=== PATIENT | male | born 1945 | race Caucasian/White ===

== ENCOUNTER 2025-01-21 15:25 | Emergency (ER) | payer MEDICARE, SELFPAY ==
[2025-01-21] VITALS (7 sets, daily range): BP systolic 149–171; BP diastolic 78–90; PULSE 55–66; RESP 14–17; TEMP 36.5–36.6; O2SAT 95–100; BMI 21.2
--- NOTE | 2025-01-21 15:26 | EKG12_ITS ---
Test Reason : STROKE Blood Pressure : */* mmHG Vent. Rate : 61 BPM Atrial Rate : 61 BPM P-R Int : 162 ms QRS Dur : 88 ms QT Int : 400 ms P-R-T Axes : 86 15 36 degrees QTcB Int : 402 ms Normal sinus rhythm Cannot rule out Anterior infarct , age undetermined Abnormal ECG Confirmed by NORBERTO ROGERS, VIVI ([id number]), order editor OSMAN PLEITEZ ([id number]) on 01/25/2025 6:01:44 AM Referred By: YASH Confirmed By: VIVI THORNTON MD
--- NOTE | 2025-01-21 15:26 | CT_ITS ---
PROCEDURE: STROKE BRAIN/HEAD WITHOUT CONT 01/21/2025 REASON FOR EXAM: NEURO DEFICIT, ACUTE, STROKE SUSPECTED TECHNIQUE: Procedure Code: CTBR.ST Modality: CT Procedure: STROKE BRAIN/HEAD WITHOUT CONT Coronal and Sagittal reconstruction series were provided. One or more dose reduction techniques were used (e.g., Automated exposure control, adjustment of the mA and/or kV according to patient size, use of iterative reconstruction technique. RADIATION DOSE SUMMARY: CTDlvol: 45 mGy DLP: 813 mGycm COMPARISON: None FINDINGS: Brain: Within normal limits for age CSF Spaces: Normal Sinuses/Mastoids: Clear at visualized levels Bones: Unremarkable. CT/STROKE Brain/Head without Cont IMPRESSION: No acute intracranial hemorrhage. Findings discussed with Dr. Fernandez in person at 3:34 p.m. Reading Location: [place] [address]
--- NOTE | 2025-01-21 15:30 | CT_ITS ---
PROCEDURE: STROKE CTA HEAD AND NECK W/CON 01/21/2025 REASON FOR EXAM: NEURO DEFICIT, ACUTE, STROKE SUSPECTED aphasic. TECHNIQUE: Procedure Code: CTCTA.ST.HN Modality: CT Procedure: STROKE CTA HEAD AND NECK W/CON Multiplanar Sagittal and Coronal images were obtained. 3D post processing was performed CONTRAST: Isovue 370 VOLUME: 100 mL One or more dose reduction techniques were used (e.g., Automated exposure control, adjustment of the mA and/or kV according to patient size, use of iterative reconstruction technique). RADIATION DOSE SUMMARY: CTDlvol: 48.5 mGy DLP: 810.2 mGycm COMPARISON: Earlier today's head CT. FINDINGS: CT BRAIN: Cerebrum: Mild loss of cerebral volume. Negative for mass the frontal, parietal, temporal and occipital lobes otherwisenegative. White matter: Mild periventricular white matter changes. Cerebellum: Negative. Negative for mass. Negative for acute infarction. CSF pathways and ventricles: Negative. Negative for ventricular dilatation or obstruction. Basal ganglia and thalami: Negative. No acute infarctions. Brainstem: Midbrain, shelby and medulla otherwisenegative. Calvarium: Negative. Negative for fractures. Orbital structures: Globes negative. Extraocular muscles negative. Paranasal sinuses: No air fluid levels. Remainder of the sinuses negative. Vascular structures: Mild calcifications of the intracranial structures. Other: : Negative for acute intracranial hemorrhage. Negative for acute infarction. Remainder of exam negative. CTA BRAIN: Codominant distal vertebral arteries. Otherwise distal vertebral arteries negative. Basilar artery negative. Posterior cerebral arteries: Right posterior communicating artery patent. Left posterior communicating artery patent. Negative for stenosis of the posterior cerebral arteries. Posterior cerebral arteries and distal branches negative. Distal internal carotid arteries: Mild vascular calcifications of the distal internal carotid arteries. Negative for stenosis. Anterior cerebral arteries: Anterior communicating artery patent. Anterior cerebral arteries and branches negative. Middle cerebral arteries: There is abrupt cutoff of the proximal left MCA with run some reconstitution of flow distally in the distal temporal and parietal branches. Segment occluded is at least 1.5 cm Right MCA and branches negative. Negative for intracranial aneurysm CTA neck: Neck: Intracranial contents negative. Imaged orbits negative. Oropharynx, hypopharynx and larynx negative. Soft tissue neck negative. No cervical adenopathy. Imaged lungs and mediastinum negative. Aortic arch and branches patent. Right side: Origin of the right common carotid artery negative. Negative for vascular calcifications of the common carotid artery and/or internal carotid artery. Negative for hemodynamically significant stenosis of the right common carotid artery. Negative for hemodynamically significant stenosis of the right internal carotid artery. Left side: Origin of the left common carotid artery negative. Negative for vascular calcifications of the common carotid and/or internal carotid artery. Negative for hemodynamically significant stenosis of the right common carotid artery. Negative for hemodynamically significant stenosis of the left internal carotid artery. CT/STROKE CTA Head AND Neck W/Con IMPRESSION: Moderate large vessel occlusion of the origin of the left MCA. There is partia l reconstitution of flow distally. Overall diminished flow in the left MCA distribution compared to the right. Normal CTA of the neck. Findings discussed with referring clinician, today at 1620 hours Reading Location: [place] [address]
[2025-01-21] MEDS: TENECTEPLASE 2491.2 MG IV (15:41)
[2025-01-21] MEDS: 0.9% Saline Lock 10 ML Syringe IV ×2 (15:41→15:42)
--- NOTE | 2025-01-21 15:41 | ED.VIS.STROK ---
HPI History of Present Illness Chief Complaint: Stroke Alert Detail of Chief Complaint: Stroke alert onset 15 Informant: EMS Limited: other (Aphasia, possibly expressive) Onset/Context/Timing Onset: Today Context: Sudden Onset Timing: Continuous Quality and Location: Positive for Right Facial Droop, Right Arm Weakness, Right Leg Weakness, Slurred Speech, Expressive Aphasia and Difficulty with Ambulation Onset: 1500 Current Severity: Severe Maximum Severity: Severe Worsened by: Unknown Relieved by: Nothing Narrative Narrative: Patient is a 77-year-old male. He does not know his name or unable to tell me his name. He does not know his age. He does not know the month. History is very limited. He was met in the ambulance bay. He has a flaccid right side. He has a facial droop on the right side. There may be slight deviation of his eyes to the left. His speech is very garbled. He is not alert. He awakens with tactile stimulus and verbal stimulus. History is unknown. PFSH PFS Medical History unable to obtain unable to obtain Allergy/AdvReac Type Severity Reaction Status Date / Time No Known Allergies Allergy Verified 01/21/25 16:18 Surgical History unable to obtain unable to obtain ROS ROS ED Review of Systems ROS Unobtainable: due to mental status EXAM Physical Exam Const Vital Signs: 01/21/25 15:25 01/21/25 15:26 01/21/25 15:41 Temperature 97.7 F L Temperature Source Temporal Pulse Rate Respiratory Rate Blood Pressure 171/84 H Blood Pressure Mean Blood Pressure Source Blood Pressure Position Blood Pressure Location Pulse Ox Oxygen Delivery Method Room Air 01/21/25 15:50 01/21/25 16:05 01/21/25 16:20 Temperature Temperature Source Pulse Rate 59 L 57 L 55 L Respiratory Rate 14 17 14 Blood Pressure 165/85 H 149/78 H 159/90 H Blood Pressure Mean 111 101 113 Blood Pressure Source Monitor Monitor Monitor Blood Pressure Position Semi-Fowlers Semi-Fowlers Semi-Fowlers Blood Pressure Location Right Arm Right Arm Right Arm Pulse Ox 100 100 100 Oxygen Delivery Method Room Air Room Air Room Air 01/21/25 16:24 Temperature 97.9 F Temperature Source Pulse Rate 57 L Respiratory Rate 14 Blood Pressure 159/90 H Blood Pressure Mean 113 Blood Pressure Source Blood Pressure Position Blood Pressure Location Pulse Ox 95 Oxygen Delivery Method Positive well nourished and well developed General Appearance ED: well developed and NAD HEENT Reports moist mucous membranes atraumatic Eyes PERRL and EOMs intact bilaterally General Eye ED: Negative for pale conjunctiva or scleral icterus Neck no lymphadenopathy, supple and no JVD Resp normal respiratory effort and clear to auscultation bilaterally Cardio no murmurs Rate: regular rate Rhythm: regular rhythm Heart Sounds: S1 normal and S2 normal GI normal to inspection, nondistended, normoactive bowel sounds, soft to palpation, non-tender, non-distended and no masses Narrative: Abdomen soft nontender. No palp pulsatile mass or abdominal bruit Extremity normal to inspection General Extremety ED: Negative for deformity or edema General Extremity: Negative for deformity or edema Neuro Shira Coma Scale: document GCS findings To Voice Obeys Commands Confused 13 Sensorium / Orientation: Negative for alert Psych Psych Narrative: Unable to determine Skin no wounds MDM MDM MDM Narrative Medical decision making narrative: Patient presents with strokelike symptoms. Patient did have biphasic T waves in V3 and V4. Prior to ordering TNK the CTA was reviewed by me and there was no evidence of aortic dissection which is of concern and consideration. Radiologist reviewed the CAT scan at 1533 Lab Data Attestation: I reviewed the patient's lab results. Lab results narrative: CBC is unremarkable Labs: Laboratory Results - last 24 hr 01/21/25 15:40 WBC 5.2 RBC 3.85 L Hgb 11.9 L Hct 34.8 L MCV 90.4 MCH 30.9 MCHC 34.2 RDW Std Deviation 43.0 RDW Coeff of Linda 13.2 Plt Count 166 MPV 10.2 Immature Gran % (Auto) 0.200 Neut % (Auto) 57.6 Lymph % (Auto) 28.6 Powell % (Auto) 10.7 H Eos % (Auto) 2.3 Baso % (Auto) 0.6 Absolute Neuts (auto) 3.0 Absolute Lymphs (auto) 1.49 Nucleated RBC % 0 PT 15.7 H INR 1.2 APTT 30.8 Sodium 135 Potassium 4.1 Chloride 103 Carbon Dioxide 24.9 Anion Gap 8 BUN 20 H Creatinine 0.98 Estim Creat Clear Calc 63.56 Est GFR (MDRD) Non-Af 81 BUN/Creatinine Ratio 20.8 H Glucose 107 H Calcium 8.3 Troponin T High Sens 14 Radiography Diagnostic Testing: Clinical Impression(s) from Imaging Studies Brain CT 01/21/25 15:26 IMPRESSION: No acute intracranial hemorrhage. Findings discussed with Dr. Fernandez in person at 3:34 p.m. Reading Location: [place] [address] Head/Neck CTA 01/21/25 15:30 IMPRESSION: Moderate large vessel occlusion of the origin of the left MCA. There is partial reconstitution of flow distally. Overall diminished flow in the left MCA distribution compared to the right. Normal CTA of the neck. Findings discussed with referring clinician, today at 1620 hours Reading Location: [place] [address] EKG Initial EKG: Attestation: I personally reviewed and interpreted this EKG as follows: Interpretation: Sinus Rhythm (Rate is 61. Patient has biphasic T waves now in V2, V3 and V4. There is some artifact. CT interval is under 62 ms. QRS duration 88 ms. QT duration 400 ms. [place] is normal) Management Discussion w/another healthcare provider: Hospitalist, Radiologist, Pharmacist and Other (Helicopter team was informed and transfer of care 164. They were told that the stated he is on Eliquis even though he denied.) Treatment and Re-Evaluation Narrative: Patient has not LVO in the left M1. Plan is air transport to [facility] Discharge Plan Triage Chief Complaint: Stroke Alert ED Provider: Shawn Fernandez Dx/Rx/DC Orders Clinical Impression: Acute ischemic left MCA stroke Primary Care Provider: Care Physician,No Primary Referrals: Care Physician,No Primary [Primary Care Provider, Medical] Print Language: [place] Citizen Disposition Disposition: Acute Care Hospital Discharge Location: [facility] NIHSS NIHSS 1a. Level of Consciousness: 1 - Not alert; Arousable by minor stimuli to obey, answer & respond 1b. LOC Questions: 2 - Answers NEITHER question correctly 1c. LOC Commands: 1 - Performs ONE task correctly 2. Best Gaze: 0 - Normal 3. Visual: 0 - No visual loss 4. Facial Palsy: 2 - Partial paralysis (total or near-total paralysis of lower face) 5a. Left Arm: 0 - No drift; arm holds 90 (or 45) degrees for full 10 seconds 5b. Right Arm: 4- No movement 6a. Left Le - No drift; leg holds 30-degree position for full 5 seconds 6b. Right Le - No effort against gravity; leg falls to bed immediately 7. Limb Ataxia: 0 - Absent 8. Sensory: 1 - [id number] sensory loss; 9. Best Language: 2 - Severe aphasia; 10. Dysarthria: 2 - Severe dysarthria; 11. Extinction and Inattention: 1 - Visual, tactile, auditory, spatial, or personal inattention; Total: 19 Stroke Questions Stroke Team Activated: Yes Reviewed Inclusion/Exclusion criteria: Yes IV Thrombolytic Administered: Yes No contraindications from thrombolytic administration: Yes Informed the patient and/or family of all associated risks, benefits, & alternatives to IV Thrombolytic Therapy. Patient and/or family voluntarily consent to the administration of IV Thrombolytic Therapy: Unable due to patients mental status/condition Details of attempts to obtain consent:: - Patient lacks the capacity to give informed consent - Attempts to contact patient field marketing representative were unsuccessful - There is an urgent need to proceed with treatment in the absence of consent - Two providers both independently agree that thrombolytics are indicated - Implied consent for emergency treatment Mental status / Condition details that prevents obtaining consent: Decreased over conscious, unable to answer questions 2nd Provider who agrees that thrombolytic is indicated: Assessment,Health Risk
[2025-01-21 15:48] LABS: Hematocrit 34.8 % (40-54); Hemoglobin 11.9 g/dL (13.0-16.5); Immature Granulocytes Count 0.010 X10^3/uL (0.0-0.0); Mean Corp Hgb Conc 34.2 g/dL (32-36); Mean Corpuscular Volume 90.4 fL (80-94); Mean Platelet Vol. 10.2 fl (6.2-12.0); NRBC Flagged by Analyzer 0 % (0-5); Platelet Count 166 K/mm3 (150-450); RBC Distribution Width CV 13.2 % (11.6-14.6); RBC Distribution Width SD 43.0 fl (35.1-43.9); Red Blood Count 3.85 M/mm3 (4.6-6.2); White Blood Count 5.2 K/mm3 (4.4-11.0)
[2025-01-21] MEDS: 0.9% Normal Saline (1000mL) 1,000 ML 100 ML IV (15:48)
--- NOTE | 2025-01-21 15:48 | ED.RN ---
PER WORK [employer]LE[employer] THAT CALLED PATIENT'S CELL PHONE, THE PTS 'S NAME IS ADAM. THEIR HOME PHONE # IS [phone] WITH A HOME ADDRESS OF [facility] [address] THIS RN ATTEMPTED TO CALL # TWICE WITH NO ANSWER AND NOW ANSWERING MACHINE TO LEAVE A MESSAGE.
[2025-01-21 16:00] LABS: Prothrombin Time (Protime)PT. 15.7 SECONDS (11.7-14.9)
[2025-01-21 16:01] LABS: Partial Thromboplast Time 30.8 Seconds (24.1-36.2)
[2025-01-21 16:13] LABS: Anion Gap 8 (5-15); BUN 20 mg/dL (4-19); BUN/Creat Ratio 20.8 RATIO (10-20); Calcium,Total 8.3 mg/dL (7.6-11.0); Carbon Dioxide 24.9 mmol/L (21.0-32.0); Chloride 103 mmol/L (98-108); Estimated Creatinine Clearance 63.56 ml/min (50-250); Glucose 107 mg/dL (70-99); Potassium 4.1 mmol/L (3.3-5.1); Troponin T High Sensitivity 14 ng/L (<=22)
--- NOTE | 2025-01-21 16:49 | ED.RN ---
pt given iphone and opened with his password. this rn confirms with pt that his 's name is Aydee. aydee called and updated on patients condition and the need for transfer to [facility] by life flight. gives verbal consent to transfer via telephone to this rn and HAO Luna. both rn's sign the transfer sheet. dr almonte spoke with as well. denies further questions or concerns/
--- NOTE | 2025-01-21 18:14 | CM.ED ---
Social work Received a call from DIANA Bonner at [facility], who stated being in need of patient's 's phone number due to missing the helicopter prior to it taking off again. DIANA provided Carli's phone number (ph: [phone]) and Ha denied further needs at this time. DIANA confirmed Carli providing consent for transport on this number per Omayra BUI's documentation. Gema Price, SCHOOL LIBRARIAN, NURSE RESEARCH
== END 2025-01-21 16:55 | disposition short-term general hospital (02) ==
PROVIDERS: Emergency Provider Emergency Medicine; Visit Provider Emergency Medicine
DX: I63.512 Cerebral infarction due to unspecified occlusion or stenosis of left middle cerebral artery (principal); G81.91 Hemiplegia, unspecified affecting right dominant side; R47.81 Slurred speech; R47.01 Aphasia; R29.810 Facial weakness; R26.89 Other abnormalities of gait and mobility; R47.1 Dysarthria and anarthria; R29.719 NIHSS score 19
CPT/HCPCS: 70450; 70496; 70498; 80048; 84484; 85025; 85610; 85730; 93005; 99285; J3101; Q9967; A4216